=== PATIENT | female | born 1965 | race Two or more races ===

== ENCOUNTER 2023-10-03 23:29 | Emergency (ER) | payer BC, OTHER ==
[~2023-10-03] VITALS: Ht 160 cm; Wt 82.0 kg
[2023-10-04] VITALS: TEMP 97.9
[2023-10-04 00:18] VITALS: PULSE 79; RESP 22; O2SAT 93
[2023-10-04 01:05] LABS: Basophils # (auto) 0 10 ^3/uL (0-0.2); Basophils % (auto) 0.1 % (0.0-2.0); Eosinophils # (auto) 0 10 ^3/uL (0-0.8); Eosinophils % (auto) 0.5 % (0.0-7.0); Hematocrit 37.8 % (36.0-46.0); Hemoglobin 12.9 g/dL (12.2-16.2); Lymphocytes # (auto) 1.3 10 ^3/uL (0.4-5.4); Lymphocytes % (auto) 18.6 % (10.0-50.0); Mean Corpuscular Hemoglobin 32.5 pg (28.0-32.0); Mean Corpuscular Hgb Conc. 34.2 g/dL (32.0-36.0); Monocytes # (auto) 0.6 10 ^3/uL (0-1.3); Monocytes % (auto) 8.3 % (0.0-12.0); Neutrophils # (auto) 5.1 10 ^3/uL (1.6-8.6); Neutrophils % (auto) 72.5 % (37.0-80.0); Red Blood Cells 3.98 10^6/uL (4.0-5.20); Red Cell Distribution Width 13.7 % (11.8-14.3); White Blood Cell 7.1 10^3/uL (4.4-10.8)
[2023-10-04] MEDS: ONDANSETRON HCL 4 MG/2 ML VIAL IV ONE (01:16)
[2023-10-04] MEDS: MORPHINE SULFATE INJ 2 MG/ml SYRG IV ONE (01:17)
[2023-10-04 01:27] LABS: Alanine Aminotransferase 20 U/L (7-40); Albumin 3.8 g/dL (3.2-4.8); Alkaline Phosphatase 94 U/L (46-116); Anion Gap 6 (5-15); Aspartate Aminotransferase 20 U/L (13-40); BUN/Creatinine Ratio 17.5 (10.0-20.0); Bilirubin, Total 0.3 mg/dL (0.2-1.0); Blood Urea Nitrogen 14 mg/dL (9-23); Calcium 8.9 mg/dL (8.7-10.4); Carbon Dioxide 25 mmol/L (20-30); Chloride 107 mmol/L (98-107); Glucose 174 mg/dL (74-106); Potassium 3.9 mmol/L (3.5-5.1); Sodium 138 mmol/L (136-145)
[2023-10-04 01:28] LABS: Total Protein 6.6 g/dL (5.7-8.2)
[2023-10-04] MEDS: IOHEXOL 300 MG/ML 100ML BOTTLE IJ ONE (01:36)
[2023-10-04] MEDS ORDERED: CYCL-839 PO (04:32)
[2023-10-04] MEDS ORDERED: ACET500T58 PO (04:32)
[2023-10-04 06:00] VITALS: BP 107/55; PULSE 73; RESP 19; O2SAT 92
== END 2023-10-04 06:09 | disposition home or self-care (01) ==
LOC: ER 23:29 → EDBD 23:29 → ER 10-04 06:09
DX: M54.2 Cervicalgia (principal); R07.89 Other chest pain; Z79.2 Long term (current) use of antibiotics; Z79.899 Other long term (current) drug therapy; Z88.8 Allergy status to other drugs, medicaments and biological substances; V43.52XA Car driver injured in collision with other type car in traffic accident, initial encounter; Y93.89 Activity, other specified; Y92.89 Other specified places as the place of occurrence of the external cause; Y99.8 Other external cause status
CPT/HCPCS: 36415; 70450; 71260; 72125; 73552; 74177; 80053; 84484; 85025; 93005; 96374; 96375; 99285; J2270; J2405; Q9967

== ENCOUNTER 2025-03-24 12:53 | Emergency (ER) | payer OTHER ==
[~2025-03-24] VITALS: Ht 160 cm; Wt 74.0 kg
[~2025-03-24 12:53] MED LIST: ACET500T58 PO; CYCL-839 PO
--- NOTE | 2025-03-24 13:10 | ED.PDOC ---
HPI (NEURO) HPI Comments This is a 59 year old female presenting to the ED with chief complaint of left eye droop. Patient reports that she has been experiencing left eye droop since this morning with associated dizziness, epigastric pain, and lower back pain. Patient relays that she visited urgent care and was advised to come to the ED for further evaluation. Patient denies any N/V/D, headache, numbness, blurred vision, chest pain, or SOB. Chief Complaint: Dizziness Time Seen by MD: 13:09 Reviewed Notes: Nurses Notes, Medications, Allergies Information Source: Patient Mode of Arrival: Ambulatory Severity: Moderate Dizziness/Weakness Severity: Does not affect activitie Timing: Hours Duration: Since onset Prehospital treatment: None Onset: At rest Circumstances: Spontaneous Past Medical History PAST MEDICAL HISTORY: Denies Surgical History: Denies all surgeries ROLL TUBE SETTER History: No Pertinent ROLL TUBE SETTER History Family History Family History: Unknown Social History Smoker: Non-Smoker Alcohol: Denies ETOH Use Drugs: Denies Drug Use Lives In: Home Constitutional: denies: chills, diaphoresis, fatigue, fever, malaise, sweats, weakness, others EENTM: denies: blurred vision, double vision, ear bleeding, ear discharge, ear drainage, ear pain, ear ringing, eye pain, eye redness, hearing loss, mouth pain, mouth swelling, nasal discharge, nose bleeding, nose congestion, nose pain, photophobia, tearing, throat pain, throat swelling, voice changes, others Respiratory: denies: cough, hemoptysis, orthopnea, SOB at rest, shortness of breath, SOB with excertion, stridor, wheezing, others Cardiovascular: denies: chest pain, dizzy spells, diaphoresis, Dyspnea on exertion, edema, irregular heart beat, left arm pain, lightheadedness, palpitations, PND, syncope, others Gastrointestinal: reports: abdominal pain; denies: abdomen distended, blood streaked bowels, constipated, diarrhea, dysphagia, difficulty swallowing, hem atemesis, melena, nausea, poor appetite, poor fluid intake, rectal bleeding, rectal pain, vomiting, others Genitourinary: denies: abnormal vagina bleeding, burning, dyspareunia, dysuria, flank pain, frequency, hematuria, incontinence, pain, , vagina discharge, urgency, others Neurological: reports: dizziness, others (Left eye droop); denies: fainting, headache, left sided numbness, left sided weakness, numbness, paresthesia, pre- existing deficit, right sided numbness, right sided weakness, seizure, speech problems, tingling, tremors, weakness Musculoskeletal: reports: back pain; denies: gout, joint pain, joint swelling, muscle pain, muscle stiffness, neck pain, others Integumetry: denies: bruises, change in color, change in hair/nails, dryness, laceration, lesions, lumps, rash, wounds, others Allergic/Immunocompromised: denies: Difficulty Healing, Frequent Infections, Hives, Itching, others Hematologic/Lymphatic: denies: anemia, blood clots, easy bleeding, easy bruising, swollen glands, others Endocrine: denies: excessive hunger, excessive sweating, excessive thirst, excessive urination, flushing, intolerance to cold, intolerance to heat, unexplained weight gain, unexplained weight loss, others Psychiatric: denies: anxiety, bipolar disorder, depression, hopeless, panic disorder, schizophrenia, sleepless, suicidal, others All Other Systems: Reviewed and Negative Physical Exam General Appearance: No Apparent Distress, Normal HEENT: Normal ENT Inspection, PERRL/EOMI, Pharynx Normal, TMs Normal, Other (Left facial droop mostly the upper lid no sensory impairment morbidity of the facial muscles all normal) Neck: Full Range of Motion, Non-Tender, Normal, Normal Inspection Respiratory: Chest Non-Tender, Lungs Clear, No Accessory Muscle Use, No Respiratory Distress, Normal Breath Sounds Cardiovascular: No Edema, No JVD, No Murmur, No Gallop, Normal Peripheral Pulses, Regular Rate/Rhythm Breast Exam: Deferred Gastrointestinal: Epigastric, No Organomegaly, No Pulsatile Mass, Normal Bowel Sounds, RUQ, Soft, Tenderness Genitalia: Deferred Pelvic: Deferred Rectal: Deferred Extremities: No calf tenderness, Normal capillary refill, Normal inspection, Normal range of motion, Non-tender, No pedal edema Musculoskeletal : Apperance: Normal Neurologic: Alert, 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 Was a procedure done?: No Differential Diagnosis (SZ) Seizure: Hyperventilation, Hypocalcemia, Hypoglycemia, Hyponatremia, Mass Lesi on CVA: Briceno's Palsy, Electrolyte Imbalance, Mass Lesion General Weakness: Anemia, Dehydration, Dysrhythmia, Electrolyte imbalance, Hypoglycemia, Labyrinthitis Headache: N/A X-Ray, Labs, Meds, VS Vital Signs Date Time Temp Pulse Resp B/P (MAP) Pulse Ox O2 Delivery O2 Flow Rate FiO2 03/24/25 15:26 98.4 82 18 125/75 (92) 98 98.4 03/24/25 15:26 82 18 98 Room Air* 0 21 03/24/25 13:18 92 03/24/25 13:09 92 03/24/25 12:55 98.4 101 18 106/87 96 98.4 Lab Test 03/24/25 14:35 03/24/25 13:12 Range/Units White Blood Count 2.8 L 4.4-10.8 10^3/uL Red Blood Count 4.69 4.0-5.20 10^6/uL Hemoglobin 15.3 12.2-16.2 g/dL Hematocrit 44.2 36.0-46.0 % Mean Corpuscular Volume 94.3 80.0-100.0 fL Mean Corpuscular Hemoglobin 32.6 H 28.0-32.0 pg Mean Corpuscular Hemoglobin Concent 34.5 32.0-36.0 g/dL Red Cell Distribution Width 13.1 11.8-14.3 % Platelet Count 326 140-450 10^3/uL Mean Platelet Volume 6.9 6.9-10.8 fL Neutrophils (%) (Auto) 41.2 37.0-80.0 % Lymphocytes (%) (Auto) 40.1 10.0-50.0 % Monocytes (%) (Auto) 18.4 H 0.0-12.0 % Eosinophils (%) (Auto) 0.1 0.0-7.0 % Basophils (%) (Auto) 0.2 0.0-2.0 % Neutrophils # (Auto) 1.2 L 1.6-8.6 10 ^3/uL Lymphocytes # (Auto) 1.1 0.4-5.4 10 ^3/uL Monocytes # (Auto) 0.5 0-1.3 10 ^3/uL Eosinophils # (Auto) 0 0-0.8 10 ^3/uL Basophils # (Auto) 0 0-0.2 10 ^3/uL Nucleated Red Blood Cells 0.2 % Sodium Level 142 136-145 mmol/L Potassium Level 4.5 3.5-5.1 mmol/L Chloride Level 102 98-107 mmol/L Carbon Dioxide Level 30 20-31 mmol/L Anion Gap 10 5-15 Blood Urea Nitrogen 7 L 9-23 mg/dL Creatinine 0.72 0.550-1.02 mg/dL Glomerular Filtration Rate Calc 96 >90 mL/min BUN/Creatinine Ratio 9.7 L 10.0-20.0 Serum Glucose 112 H 74-106 mg/dL Calcium Level 9.8 8.7-10.4 mg/dL Total Bilirubin 0.4 0.2-1.0 mg/dL Aspartate Amino Transferase (AST) 28 13-40 U/L Alanine Aminotransferase (ALT) 31 7-40 U/L Alkaline Phosphatase 112 46-116 U/L Total Protein 7.9 5.7-8.2 g/dL Albumin 4.5 3.2-4.8 g/dL Lipase 32 12-53 U/L POC Glucose 116 H 70-106 mg/dl Current Medications Medications (Trade) Dose Ordered Sig/[place] Route Start Time Stop Time Status Last Admin Sodium Chloride 1,000 ml @ 150 mls/hr Q6H40M ONCE IV 03/24/25 13:15 03/24/25 19:54 03/24/25 13:15 [place] [id number] Ph: [phone] DIAGNOSTIC IMAGING Diagnostic Imaging Report : [id number] Signed PATIENT: KATHY HANDY ACCT: [id number] UNIT: [id number] : 1965 LOC: ER ROOM / BED: / AGE / SEX: 59 / F ADM STATUS: REG ER SERVICE 1311 ORDERING PHYSICIAN: DILLON BUCHANAN MD PROCEDURE(s): HWOCT - HEAD WITHOUT CONTRAST REASON: Left facial droop sudden onset ORDER NUMBER(s): [id number], ACCESSION NUMBER(s): [id number] Procedure: CT HEAD WITHOUT CONTRAST Study Date and Requested Time: 03/24/2025 01:23 PM History: Left facial droop sudden onset Comparison: CT HEAD WITHOUT CONTRAST on DOS: 10/04/23 Dose: CTDI: 51.16 mGy DLP: 920.8 mGycm Technique: Multiplanar images obtained through the brain without intravenous contrast. Findings: Mild frontal lobe predominant brain atrophy No hemorrhages, masses, mass effect, midline shift, herniation or cytotoxic edema following a large vascular territory. No intra-axial or extra-axial fluid collections. No evidence of hydrocephalus. The basal cisterns are patent. The pituitary gland, sella and parasellar regions are unremarkable. The cerebellar tonsils are in normal position. The cerebellum is unremarkable. The orbits and globes are unremarkable. The paranasal sinuses and mastoids are clear. There are no worrisome calvarial lesions. Impression: No evidence of acute intracranial abnormality. If symptoms persist, consider MRI for further evaluation. ATED BY: CHARLINE BAIRD DO DICTATED DATE/TIME: 03/24/25 1353 SIGNED BY: CHARLINE BAIRD DO SIGNED DATE/TIME: 03/24/25 135 CC: [place] [id number] Ph: [phone] DIAGNOSTIC IMAGING Diagnostic Imaging Report : [id number] Signed PATIENT: KATHY HANDY ACCT: [id number] UNIT: [id number] : 1965 LOC: ER ROOM / BED: / AGE / SEX: 59 / F ADM STATUS: REG ER SERVICE 1311 ORDERING PHYSICIAN: DILLON BUCHANAN MD PROCEDURE(s): GBUS - GALLBLADDER REASON: Right upper quadrant pain ORDER NUMBER(s): [id number], ACCESSION NUMBER(s): [id number] INDICATION: Right upper quadrant pain TECHNIQUE: Multiple real-time sonographic images of the abdomen were obtained. COMPARISON: None FINDINGS: The liver is homogenous in echogenicity. The liver measures 15.1 cm. No intrahepatic biliary ductal dilatation is noted. Status post cholecystectomy. The common duct not visualized The right kidney measures 10.3 cm. No hydronephrosis. The left kidney measures 10 cm. No hydronephrosis. Non discussed on CT of 10/04/2023. The pancreas is not well visualized due to obscuration from bowel gas. The visualized portions of the IVC and aorta are grossly unremarkable. IMPRESSION: 1. Normal exam of the abdomen. 2. Gallbladder has been surgically removed. 3. Right kidney measures 10.3 cm. Left kidney measures 10 cm. Bilateral hydronephrosis described on abdominal ultrasound but not discussed on CT abdomen pelvis from 10/04 2023. Review of the CT scan demonstrate no hydronephrosis bilaterally. ATED BY: ELIE JARQUIN Jr., DO DICTATED DATE/TIME: 03/24/251432 SIGNED BY: ELIE JARQUIN Jr., SIGNED DATE/TIME: 03/24/251432 CC: X-Ray, Labs, Meds, VS Comment Course in the emergency department eventful patient came in complaining of back pain abdominal pain dizzy and sudden facial droop no pain EKG shows normal sinus rhythm at [address] head is normal Normal abdominal ultrasound CBC normal CMP normal Lipase 32 Patient will be discharged home to follow up with the her PCP Images Reviewed?: Images reviewed and evaluated by me Time of 1ST Reevaluation: 14:08 Reevaluation 1ST: Unchanged Patient Education/Counseling: Diagnosis, Treatment Family Education/Counseling: No Family Present Departure 1 Departure Time of Disposition: 15:34 Impression: Primary Impression: Nonspecific abdominal pain Additional Impression: Facial droop Disposition: 01 HOME / SELF CARE / HOMELESS Condition: Fair Additional Instructions: Push fluids and follow up with your PCP e-Prescriptions Metoclopramide Hcl (Reglan) 10 Mg Tab 10 MG PO BID for 5 Days, #10 TAB Prov: DILLON BUCHANAN MD 03/24/25 Discharged With: Self Critical Care Note Critical Care Time?: No Stability Stability form required: No Heart Score Heart Score: Heart Score Response (Comments) Value History N/A 0 EKG Normal 0 Age 45-64 1 Risk Factors 1 or 2 risk factors 1 Troponin N/A 0 Total 2 I personally scribed for DILLON BUCHANAN MD ([email or web address]) on 03/24/25 at 13:10. Electronically submitted by Basim Aponte ([email or web address]). I personally scribed for DILLON BUCHANAN MD ([email or web address]) on 03/24/25 at 15:12. Electronically submitted by Basim Aponte ([email or web address]). DILLON BUCHANAN MD Mar 24, 2025 13:10
[2025-03-24] MEDS: SODIUM CHLORIDE 0.9% 1,000 ML IV ONE (13:15)
--- NOTE | 2025-03-24 13:55 | DVH ---
Procedure: CT HEAD WITHOUT CONTRAST Study Date and Requested Time: 03/24/2025 01:23 PM History: Left facial droop sudden onset Comparison: CT HEAD WITHOUT CONTRAST on DOS: 10/04/23 Dose: CTDI: 51.16 mGy DLP: 920.8 mGycm Technique: Multiplanar images obtained through the brain without intravenous contrast. Findings: Mild frontal lobe predominant brain atrophy No hemorrhages, masses, mass effect, midline shift, herniation or cytotoxic edema following a large vascular territory. No intra-axial or extra-axial fluid collections. No evidence of hydrocephalus. The basal cisterns are patent. The pituitary gland, sella and parasellar regions are unremarkable. The cerebellar tonsils are in normal position. The cerebellum is unremarkable. The orbits and globes are unremarkable. The paranasal sinuses and mastoids are clear. There are no worrisome calvarial lesions. Impression: No evidence of acute intracranial abnormality. If symptoms persist, consider MRI for further evaluation.
--- NOTE | 2025-03-24 14:36 | DVH ---
INDICATION: Right upper quadrant pain TECHNIQUE: Multiple real-time sonographic images of the abdomen were obtained. COMPARISON: None FINDINGS: The liver is homogenous in echogenicity. The liver measures 15.1 cm. No intrahepatic biliary ductal dilatation is noted. Status post cholecystectomy. The common duct not visualized The right kidney measures 10.3 cm. No hydronephrosis. The left kidney measures 10 cm. No hydronephrosis. Non discussed on CT of 10/04/2023. The pancreas is not well visualized due to obscuration from bowel gas. The visualized portions of the IVC and aorta are grossly unremarkable. IMPRESSION: 1. Normal exam of the abdomen. 2. Gallbladder has been surgically removed. 3. Right kidney measures 10.3 cm. Left kidney measures 10 cm. Bilateral hydronephrosis described on abdominal ultrasound but not discussed on CT abdomen pelvis from 10/04 2023. Review of the CT scan demonstrate no hydronephrosis bilaterally.
[2025-03-24 14:53] LABS: Hematocrit 44.2 % (36.0-46.0); Hemoglobin 15.3 g/dL (12.2-16.2); Mean Corpuscular Hemoglobin 32.6 pg (28.0-32.0); Mean Corpuscular Volume 94.3 fL (80.0-100.0); Nucleated Red Blood Cells % 0.2 %
[2025-03-24 15:09] LABS: Alanine Aminotransferase 31 U/L (7-40); Albumin 4.5 g/dL (3.2-4.8); Alkaline Phosphatase 112 U/L (46-116); Anion Gap 10 (5-15); BUN/Creatinine Ratio 9.7 (10.0-20.0); Bilirubin, Total 0.4 mg/dL (0.2-1.0); Calcium 9.8 mg/dL (8.7-10.4); Carbon Dioxide 30 mmol/L (20-31); Chloride 102 mmol/L (98-107); Lipase 32 U/L (12-53); Potassium 4.5 mmol/L (3.5-5.1); Sodium 142 mmol/L (136-145); Total Protein 7.9 g/dL (5.7-8.2)
[2025-03-24 15:12] LABS: Blood Urea Nitrogen 7 mg/dL (9-23); Glucose 112 mg/dL (74-106)
[2025-03-24 15:26] VITALS: BP 125/75; PULSE 82; RESP 18; TEMP 98.4; O2SAT 98
[2025-03-24] MEDS ORDERED: METO-281 PO (15:39)
--- NOTE | 2025-03-25 08:05 | ECG ---
[facility] Test Date: 2025-03-24 Test Time: 13:09:28 Pat Name: KATHY HANDY Department: ED Room: Gender: F Clinical Educator: ER : 1965 Requested By: DILLON BUCHANAN Order Number: [id number] Reading MD: Vinnie Gr Measurements Intervals [place] Rate: 92 P: 78 MI: 162 QRS: 86 QRSD: 83 T: 34 QT: 344 QTc: 426 Interpretive Statements Sinus rhythm Borderline right axis deviation Electronically Signed On 03-26-2025 15:44:29 PST by Vinnie Gr Please click the below link to view image of tracing.
== END 2025-03-24 16:12 | disposition home or self-care (01) ==
LOC: ER 12:53
DX: R10.13 Epigastric pain (principal); R29.810 Facial weakness; M54.50 Low back pain, unspecified; Z79.899 Other long term (current) drug therapy
CPT/HCPCS: 36415; 70450; 76705; 80053; 82947; 83690; 85025; 93005; 96360; 96361; 99284; J7030; 82962